=== PATIENT | female | born 1965 | race Caucasian/White ===

== ENCOUNTER 2019-11-25 14:55 | Emergency (ER) | payer OTHER ==
[2019-11-25 15:03] VITALS: BP 148/103; PULSE 106; TEMP 97.8; BMI 32.3
[2019-11-25 15:46] LABS: EPI CELLS 0.4 /HPF (0-5/HPF); HYALINE CASTS 3 /lpf (0-8); PH,URINE 5.5 (5.0-8.0); URINE APPEARANCE CLOUDY; URINE BACTERIA 172.9 /hpf (NEGATIVE); URINE BILIRUBIN NEGATIVE (NEGATIVE); URINE COLOR YELLOW; URINE GLUCOSE (UA) NEGATIVE (NEGATIVE); URINE KETONE NEGATIVE (NEGATIVE); URINE LEUK ESTERASE 2+ (NEGATIVE); URINE NITRITE NEGATIVE (NEGATIVE); URINE PROTEIN NEGATIVE (NEGATIVE); URINE RBC 5 /hpf (0-4); URINE UROBILINOGEN 0.2 mg/dL (0.2-1.0); URINE WBC 73 /hpf (0-5)
[2019-11-25] MEDS ORDERED: SULFAMETHOXAZOLE/TRIMETHOPRIM 800MG/160MG D.S. TABLET PO ONE (15:52)
[2019-11-25] MEDS ORDERED: PHENAZOPYRIDINE HCL 100 MG TABLET (FP) PO ONE (15:52)
--- NOTE | 2019-11-25 15:55 | PDOC ---
History of Present Illness - General Chief Complaint: Urinary Problem Stated Complaint: PAIN Time Seen by Provider: 11/25/19 15:20 History Source: Patient Exam Limitations: Clinical Condition - History of Present Illness Initial Comments: 11/25/19 15:59 Patient with past medical history of hypertension on antihypertensive which patient does not recall name as she has not been compliant with medication for few weeks now presented with complaint of urinary frequency, burning with urination urinary urgency. Denies nausea, vomiting, fever, chills, chest pain, shortness of breath. Denies any other symptoms. Is this a multiple visit Asthma Patient?: No Timing/Duration: other (3 days) Past History - Past Medical History Allergies/Adverse Reactions: Allergies Allergy/AdvReac Type Severity Reaction Status Date / Time acetaminophen [From NyQuil] Allergy Verified 11/25/19 15:04 dextromethorphan Allergy Verified 11/25/19 15:04 [From NyQuil] doxylamine [From NyQuil] Allergy Verified 11/25/19 15:04 morphine Allergy Verified 11/25/19 15:04 pseudoephedrine [From NyQuil] Allergy Verified 11/25/19 15:04 Home Medications: Ambulatory Orders Sulfamethoxazole/Trimethoprim [Bactrim Ds -] 1 tab PO BID #14 tablet 11/25/19 Asthma: Yes COPD: No HTN: Yes - Psycho Social/Smoking Cessation Hx Smoking History: Current every day smoker Information on smoking cessation initiated: No Review of Systems - Review of Systems Able to Perform ROS?: Yes Is the patient limited [place] proficient: No Constitutional: No: Chills, Fever, Malaise HEENTM: No: Symptoms Reported, See HPI, Eye Pain, Blurred Vision, Tearing, Recent change in vision, Double Vision, Cataracts, Ear Pain, Ocular Prothesis, Ear Discharge, Nose Pain, Nose Congestion, Tinnitus, Nose Bleeding, Hearing Loss , Throat Pain, Throat Swelling, Mouth Pain, Dental Problems, Difficulty Swallowing, Mouth Swelling, Other Respiratory: No: Symptoms reported, See HPI, Cough, Orthopnea, Shortness of Breath, SOB with Exertion, SOB at Rest, Stridor, Wheezing, Productive cough, Hemoptysis, Other Cardiac (ROS): No: Symptoms Reported, See HPI, Chest Pain, Edema, Irregular Heart Rate, Lightheadedness, Palpitations, Syncope, Chest Tightness, Other ABD/GI: No: Symptoms Reported, See HPI, Nausea, Vomiting : Yes: Symptoms Reported, See HPI, Burning, Dysuria, Frequency, Urgency. No: Discharge, Flank Pain, Hematuria Musculoskeletal: No: Symptoms Reported, Back Pain All Other Systems: Reviewed and Negative *Physical Exam - Vital Signs Last Vital Signs Temp Pulse Resp BP Pulse Ox 97.8 F 106 H 18 148/103 H 99 11/25/19 15:01 11/25/19 15:01 11/25/19 15:01 11/25/19 15:01 11/25/19 15:01 - Physical Exam General Appearance: Yes: Nourished, Appropriately Dressed. No: Apparent Distress HEENT: positive: Normal ENT Inspection Neck: positive: Supple Respiratory/Chest: positive: Lungs Clear, Normal Breath Sounds. negative: Respiratory Distress, Accessory Muscle Use Cardiovascular: positive: Regular Rhythm, Regular Rate Gastrointestinal/Abdominal: positive: Normal Bowel Sounds. negative: Tender Musculoskeletal: positive: Normal Inspection. negative: CVA Tenderness Extremity: positive: Normal Inspection Integumentary: positive: Normal Color Neurologic: positive: Fully Oriented, Alert, Normal Mood/Affect, Normal Response ED Treatment Course - ADDITIONAL ORDERS Additional order review: Laboratory Results 11/25/19 15:15 Urine Color Yellow Urine Appearance Cloudy Urine pH 5.5 Ur Specific [place] 1.006 L Urine Protein Negative Urine Glucose (UA) Negative Urine Ketones Negative Urine Blood 3+ H Urine Nitrite Negative Urine Bilirubin Negative Urine Urobilinogen 0.2 Ur Leukocyte Esterase 2+ H Urine WBC (Auto) 73 Urine RBC (Auto) 5 Urine Casts (Auto) 3 U Epithel Cells (Auto) 0.4 Urine Bacteria (Auto) 172.9 Medical Decision Making - Medical Decision Making 11/25/19 16:00 Patient with past medical history of hypertension on antihypertensive which patient does not recall name as she has not been compliant with medication for few weeks now presented with complaint of urinary frequency, burning with urination urinary urgency. Denies nausea, vomiting, fever, chills, chest pain, shortness of breath. Denies any other symptoms. Exam significant for elevated blood pressures 148/101 which is likely due to patient not being compliant with her blood pressure meds. Otherwise normal exam. Advised patient on importance of being compliant with blood pressure medication and patient reported she was taking medication as soon as she gets home. UA done shows leukocytosis WBC. Patient stable outpatient management on Bactrim antibiotics for UTI pending urine culture result. Dose of Pyridium 200 mg p.o. 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 Patient stable for discharge Discharge - Discharge Information Problems reviewed: Yes Clinical Impression/Diagnosis: UTI (urinary tract infection) Qualifiers: Urinary tract infection type: acute cystitis Hematuria presence: without hematuria Qualified Code(s): N30.00 - Acute cystitis without hematuria Hypertension Qualifiers: Hypertension type: essential hypertension Qualified Code(s): I10 - Essential ( primary) hypertension Condition: Stable Disposition: HOME - Admission No - Additional Discharge Information Prescriptions: Sulfamethoxazole/Trimethoprim [Bactrim Ds -] 1 tab PO BID #14 tablet - Follow up/Referral Referrals: ON STAFF,NOT [Primary Care Provider] - - Patient Discharge Instructions Patient Printed Discharge Instructions: DI for Urinary Tract Infection (UTI) Additional Instructions: Take prescribed medication as prescribed for UTI. Take your blood pressure medication when you get home. Is very important you are compliant with your blood pressure medication. Increase fluid intake. Follow-up with primary care - Post Discharge Activity
[2019-11-25] MEDS ORDERED: PHENAZOPYRIDINE HCL 100 MG TABLET (FP) ONE (16:03)
[2019-11-25] MEDS ORDERED: SULFAMETHOXAZOLE/TRIMETHOPRIM 800MG/160MG D.S. TABLET ONE (16:03)
== END 2019-11-25 16:22 | disposition home or self-care (01) ==
LOC: JERFT 14:55
DX: N30.00 Acute cystitis without hematuria (principal); I10 Essential (primary) hypertension; Z88.6 Allergy status to analgesic agent; Z88.8 Allergy status to other drugs, medicaments and biological substances; Z88.5 Allergy status to narcotic agent
CPT/HCPCS: 81003; 87086; 87186; 99283-25

== ENCOUNTER 2021-04-14 11:59 | Emergency (ER) | payer OTHER ==
[2021-04-14 12:24] VITALS: BP 160/92; PULSE 80; TEMP 97.2; BMI 34.3
== END 2021-04-14 12:52 | disposition home or self-care (01) ==
LOC: JERFT 11:59 → JER 11:59 → JERFT 12:52
DX: H60.502 Unspecified acute noninfective otitis externa, left ear (principal)
CPT/HCPCS: 99282-25

== ENCOUNTER 2021-08-17 16:59 | Emergency (ER) | payer OTHER ==
[2021-08-17 17:51] VITALS: BP 118/75; PULSE 83; TEMP 98; BMI 30.2
[2021-08-17] MEDS ORDERED: LORATADINE 10 MG TABLET PO ONE (18:57)
[2021-08-17] MEDS ORDERED: ERYTHROMYCIN 0.5% OPHTHALMIC OINTMENT 3.5 GM TUBE ONE (18:58)
[2021-08-17] MEDS ORDERED: ERYTHROMYCIN 0.5% OPHTHALMIC OINTMENT 3.5 GM TUBE OU ONE (18:58)
[2021-08-17] MEDS ORDERED: LORATADINE 10 MG TABLET ONE (18:58)
== END 2021-08-17 20:41 | disposition home or self-care (01) ==
LOC: JERFT 16:59
DX: H10.13 Acute atopic conjunctivitis, bilateral (principal)
CPT/HCPCS: 99283-25

== ENCOUNTER 2022-04-03 12:17 | Emergency (ER) | payer OTHER ==
[2022-04-03 12:24] VITALS: BP 151/85; PULSE 92; TEMP 98.5; BMI 29.5
[2022-04-03] MEDS ORDERED: KETOROLAC TROMETHAMINE 30 MG/1 ML VIAL IM ONE (13:04)
[2022-04-03] MEDS ORDERED: CYCLOBENZAPRINE HCL 10 MG TABLET (FP) PO ONE ×2 (13:04→15:21)
[2022-04-03] MEDS ORDERED: CYCLOBENZAPRINE HCL 10 MG TABLET (FP) ONE ×2 (13:14→15:22)
[2022-04-03] MEDS ORDERED: KETOROLAC TROMETHAMINE 30 MG/1 ML VIAL ONE (13:14)
[2022-04-03] MEDS ORDERED: IBUPROFEN 600 MG TABLET (FP) PO ONE ×2 (15:21→15:22)
== END 2022-04-03 15:41 | disposition home or self-care (01) ==
LOC: JERFT 12:17 → JER 12:17 → JERFT 15:41
PROC: 3E0233Z Introduction of Anti-inflammatory into Muscle, Percutaneous Approach (ICD-10-PCS; principal; 2022-04-03)
DX: M79.602 Pain in left arm (principal); W01.0XXA Fall on same level from slipping, tripping and stumbling without subsequent striking against object, initial encounter
CPT/HCPCS: 73060-TC-LT-FY; 93971; 99284-25

== ENCOUNTER 2024-05-03 17:56 | Emergency (ER) | payer OTHER ==
[2024-05-03 18:24] VITALS: BP 149/81; PULSE 75; RESP 18; TEMP 98.4; BMI 29.9
== END 2024-05-03 19:37 | disposition home or self-care (01) ==
LOC: JER 17:56 → JERFT 17:56
DX: H60.501 Unspecified acute noninfective otitis externa, right ear (principal)
CPT/HCPCS: 99283-25